=== PATIENT | female | born 1995 | race Caucasian/White ===

== ENCOUNTER → 2016-10-23 | Outpatient (CLI) | payer MEDICAID ==
--- NOTE | 2016-10-23 12:09 | Diagnostic Imaging Report ---
First trimester OB ultrasound. INDICATION: Dating. FINDINGS: There is a normal-appearing single intrauterine . An embryo is seen with cardiac activity at 165 beats per minute. The crown-rump length is at 9 weeks and 5 days. GIOVANA is 05/23/17. There is a subchorionic hemorrhage measuring 4.1 x 0.3 x 2.5 CM.. IMPRESSION: Live single intrauterine . Small subchorionic hemorrhage. Dictated by: Dictated on workstation # [id number]
== END ==
LOC: RAD 10:56
PROVIDERS: ATTEND Family Medicine
DX: Z36 Encounter for antenatal screening of mother; O20.8 Other hemorrhage in early pregnancy; Z3A.09 9 weeks gestation of pregnancy
CPT/HCPCS: 76801

== ENCOUNTER 2022-12-01 17:35 | Outpatient (CLI) | payer SELFPAY ==
[~2022-12-01] VITALS: Ht 167.7 cm; Wt 176.5 kg
[2022-12-01 18:25] VITALS: BP 132/64
[2022-12-01] MEDS ORDERED: PREN-102 PO (18:47)
[2022-12-01] MEDS ORDERED: LABE200T10 PO (18:47)
[2022-12-01] MEDS ORDERED: ASPI-999 PO (18:48)
[2022-12-01] MEDS ORDERED: FERR-84 PO (18:48)
--- NOTE | 2022-12-04 08:12 | Physician Query-Final Dx ---
Clinic Account Progress/Dx Physician Query: Please give diagnosis Please include # weeks gestation Date of Service Dec 01, 2022 at 17:35 JOEL,AprDec 04, 2022 08:12
== END 2022-12-01 18:55 ==
LOC: LDRP 17:35 → WSo 17:35
PROVIDERS: ATTEND Family Medicine
DX: O36.8130 Decreased fetal movements, third trimester, not applicable or unspecified (principal); Z3A.34 34 weeks gestation of pregnancy
CPT/HCPCS: 59025